=== PATIENT | male | born 1990 | race American Indian/Alaskan Native ===

== ENCOUNTER 2017-05-24 11:39 | Emergency (ER) | payer SELFPAY ==
[2017-05-24] MEDS ORDERED: UNASYN/NS 3 GM/100 ML 3 GM/100 ML BAG IV ONE (13:16)
[2017-05-24] MEDS ORDERED: TYLENOL PO PRN (13:20)
[2017-05-24] MEDS ORDERED: ZOFRAN ODT PO PRN (13:20)
[2017-05-24] MEDS ORDERED: ATIVAN IM PRN (13:20)
[2017-05-24] MEDS ORDERED: HALDOL IM PRN (13:20)
--- NOTE | 2017-05-24 13:20 | Emergency Department Report ---
ED General Adult HPI - General Chief complaint: Psych Stated complaint: SUICIDAL/MH Time Seen by Provider: 05/24/17 13:15 Source: patient, EMS (ems notes not available at time of chart dictation), RN notes reviewed, old records reviewed Mode of arrival: Stretcher Limitations: No Limitations - History of Present Illness Initial comments: This is a 27-year-old male who is previously known to this provider. Patient has a past medical history of psychiatric disease, bipolar, hypertension. Patient presents to the ER with a complaint of suicidality. He reports hearing voices. States " voices are laughing at me and telling me im no good so im depressed." out of meds for a week Patient denies headache, neck pain, chest pain, abdominal pain and shortness of breath. Patient indicates he attempted to overdose on Benadryl 3-4 days ago, thinks that he may have passed out but is not sure, also indicates that he attempted to overdose on cocaine yesterday, there is no chest pain. There is no leg pain, there is no leg swelling, no recent trips greater than 4 hours, no recent hospital admissions. Patient denies irritative obstructive urinary symptoms, he reports that he is hungry, and wants to eat. Patient indicates that noncompliance with his psychiatric medications as a typical exacerbation factor for his suicidality. -: Gradual Consistency: constant Improves with: medication Associated Symptoms: denies other symptoms, malaise, syncope, weakness. denies : chest pain, cough - Related Data Home Medications Medication Instructions Recorded Confirmed Last Taken Atenolol [Tenormin] 50 mg PO DAILY 07/03/14 05/24/17 09/11/14 Hydrochlorothiazide [HCTZ] 25 mg PO QDAY 07/03/14 05/24/17 09/11/14 traZODone 100 mg PO QHS 12/29/14 05/24/17 Unknown Previous Rx's Medication Instructions Recorded Last Taken Type ALPRAZolam [Xanax TAB] 2 mg PO TID PRN #10 tablet 06/06/14 06/30/14 Rx Allergies Allergy/AdvReac Type Severity Reaction Status Date / Time lisinopril Allergy Angioedema Verified 12/08/14 08:21 ED Review of Systems ROS: Stated complaint: SUICIDAL/MH Other details as noted in HPI Constitutional: malaise. denies: fever Eyes: denies: vision change ENT: denies: epistaxis Respiratory: denies: cough Cardiovascular: denies: chest pain Gastrointestinal: denies: abdominal pain Genitourinary: denies: dysuria Musculoskeletal: denies: back pain Skin: denies: lesions Neurological: weakness Psychiatric: anxiety, homicidal thoughts, suicidal thoughts ED Past Medical Hx - Past Medical History Hx Hypertension: Yes Hx Psychiatric Treatment: Yes (bipolar) - Surgical History Additional Surgical History: tonsilLectomy - Social History Smoking Status: Current Every Day Smoker Substance Use Type: None - Medications Home Medications: Home Medications Medication Instructions Recorded Confirmed Last Taken Type ALPRAZolam [Xanax TAB] 2 mg PO TID PRN #10 tablet 06/06/14 05/24/17 06/30/14 Rx Atenolol [Tenormin] 50 mg PO DAILY 07/03/14 05/24/17 09/11/14 History Hydrochlorothiazide [HCTZ] 25 mg PO QDAY 07/03/14 05/24/17 09/11/14 History traZODone 100 mg PO QHS 12/29/14 05/24/17 Unknown History ED Physical Exam - General Limitations: No Limitations General appearance: alert, in no apparent distress - Head Head exam: Present: atraumatic, normocephalic - Eye Eye exam: Present: normal appearance, PERRL, EOMI. Absent: nystagmus - ENT ENT exam: Present: normal exam, normal orophraynx, mucous membranes moist, TM's normal bilaterally, normal external ear exam, other (there is no mastoid tenderness, there is no nasal septal hematoma, no hemotympanum) - Neck Neck exam: Present: normal inspection, full ROM. Absent: tenderness, meningismus - Respiratory Respiratory exam: Present: normal lung sounds bilaterally. Absent: respiratory distress, wheezes, rales, rhonchi, stridor, chest wall tenderness, accessory muscle use, decreased breath sounds, prolonged expiratory - Cardiovascular Cardiovascular Exam: Present: regular rate, normal rhythm, normal heart sounds. Absent: bradycardia, tachycardia, irregular rhythm, systolic murmur, diastolic murmur, rubs, gallop - GI/Abdominal GI/Abdominal exam: Present: soft, normal bowel sounds. Absent: distended, tenderness, guarding, rebound, rigid, pulsatile mass - Rectal Rectal exam: Present: deferred - Extremities Exam Extremities exam: Present: normal inspection, full ROM, normal capillary refill. Absent: pedal edema, joint swelling, calf tenderness - Back Exam Back exam: Present: normal inspection, full ROM. Absent: tenderness, CVA tenderness (R), CVA tenderness (L), muscle spasm, paraspinal tenderness, vertebral tenderness - Neurological Exam Neurological exam: Present: alert, oriented X3, normal gait, other (Extraocular movements intact. Tongue midline. No facial droop. Facial sensation intact to light touch in the V1, V2, V3 distribution bilaterally. 5 and 5 strength in 4 extremities.. Sensation is intact to light touch in 4 extremities.). Absent : motor sensory deficit - Psychiatric Psychiatric exam: Present: anxious, homicidal ideation, suicidal ideation - Skin Skin exam: Present: warm, dry, intact, normal color. Absent: rash ED Course Vital Signs 05/24/17 05/24/17 05/24/17 12:29 14:55 21:00 Temperature 98.6 F 98.2 F Pulse Rate 95 H 68 80 Respiratory 16 18 18 Rate Blood Pressure 139/87 Blood Pressure 120/74 108/70 [Left] O2 Sat by Pulse 94 100 98 Oximetry 05/25/17 08:00 Temperature 97.9 F Pulse Rate 85 Respiratory 17 Rate Blood Pressure Blood Pressure 143/91 [Left] O2 Sat by Pulse 96 Oximetry - Reevaluation(s) Reevaluation #1: 05/24/17 14:20 Differential diagnosis: Overdose, orthostasis, vagal event, medical clearance for psychiatric placement, intracranial injury, arrhythmia Assessment and plan: 27-year-old male with a primary complaint of suicidality. He is afebrile, with reassuring vital signs, walks with a steady gait, has a GCS of 15, with an NIH score of 0. No pulmonary embolus or DVT risk factors, low risk by well's criteria,PERC NEGATIVE Patient reports ingesting substances almost 24-48 hours ago, therefore NOT A charcoal candidate. He is placed on a disability specialist, EKG is abnormal but unchanged from prior, serum toxicology studies pending at this time. 1013 is filled out. No active vomiting. Reevaluation #2: 05/24/17 16:24 CT scan of the brain is negative. Toxicology studies are unremarkable. Patient has been observed in the ER for 5 hours. No arrhythmias, no unstable vital signs, no loss of consciousness, at this point in time, there does not appear to be any immediate medical contraindication to psychiatric admission, evaluation and consultation. The crisis team was informed. ED Medical Decision Making - Lab Data Result diagrams: 05/24/17 13:27 05/24/17 13:27 Vital Signs 05/24/17 12:29 Temperature 98.6 F Pulse Rate 95 H Respiratory 16 Rate Blood Pressure 139/87 O2 Sat by Pulse 94 Oximetry Laboratory Last Values WBC 15.6 K/mm3 (4.5-11.0) H 05/24/17 13: RBC 4.24 M/mm3 (3.65-5.03) 05/24/17 13: Hgb 12.2 gm/dl (11.8-15.2) 05/24/17: Hct 38.5 % (35.5-45.6) 05/24/17 13: MCV 91 fl (84-94) 05/24/17 13: MCH 29 pg (28-32) 05/24/17 13: MCHC 32 % (32-34) 05/24/17 13: RDW 13.5 % (13.2-15.2) 05/24/17 13: Plt Count 350 K/mm3 (140-440) 05/24/17 13:27 Lymph % (Auto) 20.2 % (13.4-35.0) 05/24/17 13:27 [place] % (Auto) 3.9 % (0.0-7.3) 05/24/17 13: Eos % (Auto) 0.6 % (0.0-4.3) 05/24/17 13:27 Baso % (Auto) 0.7 % (0.0-1.8) 05/24/17 13:27 Lymph # 3.1 K/mm3 (1.2-5.4) 05/24/17 13:27 [place] # 0.6 K/mm3 (0.0-0.8) 05/24/17 13:27 Eos # 0.1 K/mm3 (0.0-0.4) 05/24/17 13:27 Baso # 0.1 K/mm3 (0.0-0.1) 05/24/17 13:27 Seg Neutrophils % 74.6 % (40.0-70.0) H 05/24/17 13:27 Seg Neutrophils # 11.7 K/mm3 (1.8-7.7) H 05/24/17 13:27 Sodium 144 mmol/L (137-145) 05/24/17 13:27 Potassium 3.7 mmol/L (3.6-5.0) 05/24/17 13:27 Chloride 103.6 mmol/L (98-107) 05/24/17 13:27 Carbon Dioxide 25 mmol/L (22-30) 05/24/17 13:27 Anion Gap 19 mmol/L 05/24/17 13:27 BUN 11 mg/dL (9-20) 05/24/17 13:27 Creatinine 0.7 mg/dL (0.8-1.5) L 05/24/17 13:27 Estimated GFR > 60 ml/min 05/24/17 13:27 BUN/Creatinine Ratio 16 % 05/24/17 13:27 Glucose 93 mg/dL (75-100) 05/24/17 13:27 Calcium 9.5 mg/dL (8.4-10.2) 05/24/17 13:27 Total Creatine Kinase 529 units/L (55-170) H 05/24/17 13:27 Urine Color Genna (Yellow) 05/24/17 12:48 Urine Turbidity Clear (Clear) 05/24/17 12:48 Urine pH 5.0 (5.0-7.0) 05/24/17 12:48 Ur Specific [place] 1.035 (1.003-1.030) H 05/24/17 12:48 Urine Protein 30 mg/dl mg/dL (Negative) 05/24/17 12:48 Urine Glucose (UA) Neg mg/dL (Negative) 05/24/17 12:48 Urine Ketones 20 mg/dL (Negative) 05/24/17 12:48 Urine Blood Neg (Negative) 05/24/17 12:48 Urine Nitrite Neg (Negative) 05/24/17 12:48 Urine Bilirubin Sm (Negative) 05/24/17 12:48 Urine Ictotest Negative (Negative) 05/24/17 12:48 Urine Urobilinogen 4.0 mg/dL (<2.0) 05/24/17 12:48 Ur Leukocyte Esterase Neg (Negative) 05/24/17 12:48 Urine WBC (Auto) 4.0 /HPF (0.0-6.0) 05/24/17 12:48 Urine RBC (Auto) 2.0 /HPF (0.0-6.0) 05/24/17 12:48 U Epithel Cells (Auto) 6.0 /HPF (0-13.0) 05/24/17 12:48 Urine Mucus 3+ /HPF 05/24/17 12:48 Salicylates < 0.3 mg/dL (2.8-20.0) L 05/24/17 13:27 Acetaminophen < 15.0 ug/mL (10.0-30.0) 05/24/17 13:27 Plasma/Serum Alcohol < 0.01 gm% (0-0.07) 05/24/17 13:27 - EKG Data -: EKG Interpreted by [facility] EKG shows normal: sinus rhythm - EKG Data 05/24/17 14:22 EKG: Normal sinus, 91 bpm, normal intervals, normal axis, nonspecific T-wave abnormalities inferior leads, this EKG is not morphologically consistent with a STEMI, it appears to be unchanged compared to prior from February 2015. Critical care attestation.: If time is entered above; I have spent that time in minutes in the direct care of this critically ill patient, excluding procedure time. ED Disposition Clinical Impression: Suicidal ideation Disposition: DC/TX-65 PSY HOSP/PSY UNIT Is pt being admited?: No Does the pt Need Aspirin: No Condition: Good Referrals: PRIMARY CARE, [Primary Care Provider] - 3-5 Days
[2017-05-24 13:41] LABS: Basophils % (Auto) 0.7 % (0.0-1.8); Eosinophils % (Auto) 0.6 % (0.0-4.3); Hematocrit 38.5 % (35.5-45.6); Hemoglobin 12.2 gm/dl (11.8-15.2); Mean Corpuscular HGB Conc 32 % (32-34); Mean Corpuscular Hemoglobin 29 pg (28-32); Mean Corpuscular Volume 91 fl (84-94); Platelet Count 350 K/mm3 (140-440); Red Blood Count 4.24 M/mm3 (3.65-5.03); Red Cell Distribution Width 13.5 % (13.2-15.2); White Blood Count 15.6 K/mm3 (4.5-11.0)
[2017-05-24 13:58] LABS: Urine Drugs of Abuse Note Disclamer
[2017-05-24 14:00] LABS: Anion Gap 19 mmol/L; BUN/Creatinine Ratio 16; Blood Urea Nitrogen 11 mg/dL (9-20); Calcium 9.5 mg/dL (8.4-10.2); Carbon Dioxide 25 mmol/L (22-30); Chloride 103.6 mmol/L (98-107); Glucose 93 mg/dL (75-100); Potassium 3.7 mmol/L (3.6-5.0); Sodium 144 mmol/L (137-145)
[2017-05-24 14:10] LABS: Bilirubin,Urine SM (Negative); Blood,Urine NEG (Negative); Ketones,Urine 20 mg/dL (Negative); Leukocyte Esterase,Urine NEG (Negative); Mucus,Urine 3+ /HPF; Nitrite,Urine NEG (Negative)
--- NOTE | 2017-05-24 15:51 | Cat Scan Report ---
FINAL REPORT PROCEDURE: CT HEAD/BRAIN WO CON TECHNIQUE: Computerized tomography of the head was performed without contrast material. HISTORY: ams syncope COMPARISON: No prior studies are available for comparison. FINDINGS: No CT evidence of intracranial mass, hemorrhage, acute territorial infarction, or hydrocephalus. The intracranial arteries are symmetric in density. Calvarium is intact. Visualized paranasal sinuses and mastoids are aerated. IMPRESSION: No CT evidence of acute abnormality
[2017-05-24] MEDS ORDERED: DESYREL PO SCH (22:00)
[2017-05-24] MEDS ORDERED: DESYREL PO ONE (23:41)
[2017-05-25 08:23] VITALS: BP 143/91
--- NOTE | 2017-05-25 12:21 | Consultation ---
History of Present Illness - Reason for Consult Consult date: 05/25/17 Reason for consult: Mental Health Evaluation Requesting physician: AUREA GARCIA - Chief Complaint Chief complaint: "I don't know what to do" - History of Present Psychiatric Illness This is a 27-year-old AA male presenting to [facility] for suicidality. Today patient is calm and cooperative during the assessment. He stated that he isn't "right mentally." He stated that he was living in [place], [place] recently. While in [place], he stated that he stop taking his medications because he felt "fine." At this time the patient was working. He stated after 2 week of noncompliance of his medications he started hearing voices telling him that "his life is worthless." He stated over several days he became suicidal with a plan to overdose. He stated that he have attempted suicide in the past by overdosing. He stated that he started using cocaine to ease the voices that he hear. He stated that he take Xanax for anxiety "sometimes." He denies HI's and VH's. He denies a poor appetite, but his sleep has been erratic "lately." He admit to recreational drug use (cocaine), but denies excessive alcohol consumption. (etoh ). Medications and Allergies Allergies Allergy/AdvReac Type Severity Reaction Status Date / Time lisinopril Allergy Angioedema Verified 12/08/14 08:21 Home Medications Medication Instructions Recorded Confirmed Last Taken Type ALPRAZolam [Xanax TAB] 2 mg PO TID PRN #10 tablet 06/06/14 05/24/17 06/30/14 Rx Atenolol [Tenormin] 50 mg PO DAILY 07/03/14 05/24/17 09/11/14 History Hydrochlorothiazide [HCTZ] 25 mg PO QDAY 07/03/14 05/24/17 09/11/14 History traZODone 100 mg PO QHS 12/29/14 05/24/17 Unknown History Active Meds: Active Medications Acetaminophen (Tylenol) 650 mg PO Q6HR PRN PRN Reason: Pain Haloperidol Lactate (Haldol) 5 mg IM Q6HR PRN PRN Reason: Agitation Lorazepam (Ativan) 2 mg IM Q4HR PRN PRN Reason: Agitation Ondansetron HCl (Zofran Odt) 4 mg PO Q6HR PRN PRN Reason: Nausea Trazodone HCl (Desyrel) 100 mg PO HS [facility] Stop: 05/29/17 21:59 Last Admin: 05/25/17 01:12 Dose: Not Given Past psychiatric history - Past Medical History Past Medical History: hypertension Past Surgical History: No surgical history - past Psychiatric treatment and history Psych: Bipolar, Schizophrenia psychiatric treatment history: Had a psychiatrist in [place], [place]. Family hx of Bipolar DO. - Social History Social history: other (Homeless) Mental Status Exam - Vital signs Last Vital Signs Temp 97.9 F 05/25/17 08:00 Pulse 85 05/25/17 08:00 Resp 17 05/25/17 08:00 BP 143/91 05/25/17 08:00 Pulse Ox 96 05/25/17 08:00 - Exam Narrative exam: MSE: Appearance: calm, cooperative Behavior: regular eye contact Speech: regular rate and tone Mood: "I feel awful mentally" Affect: labile Thought Process: circumstantial Thought Content: denies HI's and VH's Motor Activity: sitting up in bed Cognition: A/O x3 Insight: variable Judgment: variable Results Result Diagrams: 05/24/17 13:27 05/24/17 13:27 Abnormal lab results 05/24/17 05/24/17 05/24/17 Range/Units 12:48 13:27 13:27 WBC 15.6 H (4.5-11.0) K/mm3 Seg Neutrophils % 74.6 H (40.0-70.0) % Seg Neutrophils # 11.7 H (1.8-7.7) K/mm3 Creatinine 0.7 L (0.8-1.5) mg/dL Total Creatine Kinase (55-170) units/L Ur Specific [place] 1.035 H (1.003-1.030) Salicylates (2.8-20.0) mg/dL 05/24/17 05/24/17 Range/Units 13:27 13:27 WBC (4.5-11.0) K/mm3 Seg Neutrophils % (40.0-70.0) % Seg Neutrophils # (1.8-7.7) K/mm3 Creatinine (0.8-1.5) mg/dL Total Creatine Kinase 529 H (55-170) units/L Ur Specific [place] (1.003-1.030) Salicylates < 0.3 L (2.8-20.0) mg/dL All other labs normal. Assessment and Plan Assessment and plan: Impression: Historical Dx: Schizoaffective DO/Anxiety. Unspecified Mood DO with psychotic features. Substance Use DO (cocaine). Today patient is calm and cooperative during the assessment. Patient experiencing AH's. Patient positive for cocaine and benzos. DDx: Schizophrenia, Bipolar DO, MDD, Substance Induced Mood DO Recommendation/Plan: Continue 1013 with placement to [facility] today. Start Geodon 20 mg PO BID for psychotic symptoms/mood and Xanax 0.5 mg PO Q8hrs PRN for anxiety. Discussed possible metabolic side effects of Geodon with patient.
[2017-05-25] MEDS ORDERED: XANAX PO PRN (12:31)
[2017-05-25] MEDS ORDERED: GEODON PO SCH (13:00)
== END 2017-05-25 12:44 ==
LOC: ED 11:39 → EEVIPCON 11:39 → ED 05-25 12:44
DX: F31.9 Bipolar disorder, unspecified (principal); I10 Essential (primary) hypertension; F17.210 Nicotine dependence, cigarettes, uncomplicated; Z88.8 Allergy status to other drugs, medicaments and biological substances
CPT/HCPCS: 36415; 70450; 80048; 80307; 81001; 82550; 85025; 93005; 93010; 99285; G0480; J0295; 80320